=== PATIENT | female | born 2005 | race Caucasian/White ===

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

== ENCOUNTER → 2024-02-28 | Outpatient (CLI) | payer BC ==
[2024-02-28 13:33] LABS: FREE T4 2.67 ng/dl (0.89-1.76)
== END | disposition home or self-care (01) ==
LOC: LAB 11:18
PROVIDERS: ATTEND Nurse Practitioner
DX: R94.6 Abnormal results of thyroid function studies (principal); E66.9 Obesity, unspecified

== ENCOUNTER → 2024-03-09 | Outpatient (CLI) | payer BC ==
[2024-03-09 09:28] LABS: FREE T4 2.76 ng/dl (0.89-1.76)
== END | disposition home or self-care (01) ==
LOC: NM 07:00 → LAB 07:07 → NM 04-22 07:00
PROVIDERS: ATTEND Nurse Practitioner
DX: R00.2 Palpitations (principal); R89.9 Unspecified abnormal finding in specimens from other organs, systems and tissues; R94.5 Abnormal results of liver function studies; E66.9 Obesity, unspecified

== ENCOUNTER → 2024-03-12 | Outpatient (CLI) | payer BC ==
[2024-03-12 10:30] LABS: FREE T4 3.19 ng/dl (0.89-1.76)
== END | disposition home or self-care (01) ==
LOC: LAB 09:34
PROVIDERS: Student in an Organized Health Care Education/Training Program; ATTEND Family Medicine
DX: E05.00 Thyrotoxicosis with diffuse goiter without thyrotoxic crisis or storm (principal); E66.9 Obesity, unspecified

== ENCOUNTER → 2024-05-15 | Outpatient (CLI) | payer BC ==
[2024-05-15 12:44] LABS: FREE T4 2.55 ng/dl (0.89-1.76)
== END | disposition home or self-care (01) ==
LOC: LAB 10:15
PROVIDERS: Student in an Organized Health Care Education/Training Program; ATTEND Internal Medicine
DX: E05.00 Thyrotoxicosis with diffuse goiter without thyrotoxic crisis or storm (principal); E66.9 Obesity, unspecified

== ENCOUNTER → 2025-01-23 | Outpatient (CLI) | payer BC ==
[2025-01-23 08:49] LABS: BASO # 0.1 10*3/uL (0.0-0.1); BASO % 0.7 % (0.0-1.0); EOS # 0.9 10*3/uL (0.0-0.4); EOS % 10.0 % (1.0-4.0); MEAN CELL VOLUME 86.8 fl (81.0-99.0); MEAN CORPUSCULAR HGB 28.8 pg (27.0-31.0); MEAN PLATELET VOLUME 9.3 fl (9.6-12.3); MONO # 0.6 10*3/uL (0.1-1.0); MONO % 7.2 % (3.0-9.0); NEUT # 5.1 10*3/uL (2.3-7.9); NEUT % 58.8 % (47.0-73.0); NUCLEATED RED BLOOD CELL 0.0 % (0.0-0.0); NUCLEATED RED BLOOD CELL 0.0 10*3/uL (0.0-0.0); PLATELET COUNT AUTOMATED 406 10*3/uL (130-400); RED CELL DISTRI WIDTH 12.2 % (0-14.5)
[2025-01-23 08:51] LABS: BILIRUBIN Negative (Negative); BLOOD Negative (Negative); CLARITY Clear (Clear); COLOR Yellow (Yellow); KETONE Negative (Negative); LEUKO ESTERASE 2+ (Negative); NITRITE Negative (Negative); PH 6.5 (4.5-8.0); SPECIFIC GRAVITY <= 1.005 (1.001-1.030); UROBILINOGEN 0.2 E.U./dl (0.0-1.0)
[2025-01-23 09:06] LABS: RBC 0-2 rbc/hpf (0-2)
[2025-01-23 09:07] LABS: BACTERIA 3+
[2025-01-23 09:41] LABS: BUN 9 mg/dl (9-23); LDL CHOLESTEROL 136 mg/dL (9-159); SGPT/ALT 26 U/L (5-49)
[2025-01-23 09:45] LABS: VITAMIN D, 25-HYDROXY 37.7 ng/mL (30-100)
== END | disposition home or self-care (01) ==
LOC: LAB 08:25
PROVIDERS: ATTEND Nurse Practitioner Family
DX: Z11.3 Encounter for screening for infections with a predominantly sexual mode of transmission (principal); Z11.59 Encounter for screening for other viral diseases; Z11.4 Encounter for screening for human immunodeficiency virus [HIV]; G43.E09 Chronic migraine with aura, not intractable, without status migrainosus; Z68.42 Body mass index [BMI] 45.0-49.9, adult